=== PATIENT | male | born 1975 ===

== ENCOUNTER 2018-08-02 23:40 | Emergency (ER) | payer OTHER ==
[2018-08-03] MEDS ORDERED: Promethazine/Cod 6.25mg-10mg/5ml Syr UD PO STA (01:06)
[2018-08-03] MEDS ORDERED: Albuterol-Ipratrop 3 mg / 0.5 (3 ml) UD IH STA (01:06)
--- NOTE | 2018-08-03 01:09 | ED PDOC ---
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 Associated chills and subjective fevers at night. Patient taking Mucniex, Theraflu, and cough syrup without improvement. Denies fever, chest pain, shortness of breath, palpitations, leg pain/swelling, recent travel, sick contacts. Past Medical History Reviewed: Historical Data, Nursing Documentation, Vital Signs Vital Signs: Last Vital Signs Temp 98.2 F 08/03/18 00:09 Pulse 78 08/03/18 00:09 Resp 16 08/03/18 00:09 BP 145/87 08/03/18 00:09 Pulse Ox 97 08/03/18 00:09 - Medical History PMH: Bronchitis, Depression - Surgical History Surgical History: No Surg Hx - Family History Family History: States: No Known Family Hx - Living Arrangements Living Arrangements: With Family - Home Medications Home Medications: Ambulatory Orders Medication Instructions Recorded Albuterol HFA [Ventolin HFA 90 2 puff IH A8CLMBC #60 puff 04/15/15 mcg/actuation (8 g)] Azithromycin 250 mg PO DAILY 4 Days tab 04/15/15 Ibuprofen [Motrin Tab] 600 mg PO Q6 #30 tab 03/05/17 Promethazine DM [Phenergan DM 10 d PO DAILY 5 Days #10 dose 03/05/17 Syrup] predniSONE [predniSONE Tab] 20 mg PO DAILY #2 tab 03/05/17 Albuterol HFA [Ventolin HFA 90 1 puff IH Q4 PRN #1 inh 08/03/18 mcg/actuation (8 g)] Fluticasone Nasal [Flonase] 1 actuation NS BID #1 bottle 08/03/18 Methylprednisolone [Medrol Dose 4 mg PO ASDIR #21 mg 08/03/18 Pack (21 tabs)] Promethazine/Codeine 5 ml PO HS PRN #20 ml 08/03/18 [Phenergan/Codeine Oral Syrup] - Allergies Allergies/Adverse Reactions: Allergies Allergy/AdvReac Type Severity Reaction Status Date / Time No Known Allergies Allergy Verified 03/05/17 02:47 Review of Systems ROS Statement: Except As Marked, All Systems Reviewed And Found Negative ENT: Positive for: Nose Congestion Respiratory: Positive for: Cough Physical Exam - Reviewed Nursing Documentation Reviewed: Yes Vital Signs Reviewed: Yes - Physical Exam Appears: Positive for: Well, Non-toxic, No Acute Distress Head Exam: Positive for: ATRAUMATIC, NORMAL INSPECTION, NORMOCEPHALIC Skin: Positive for: Normal Color Eye Exam: Positive for: Normal appearance ENT: Positive for: TM Is/Are (clear), Nasal Congestion. Negative for: Pharyngea l Erythema, Tonsillar Exudate Cardiovascular/Chest: Positive for: Regular Rate, Rhythm Respiratory: Positive for: Normal Breath Sounds Gastrointestinal/Abdominal: Positive for: Normal Exam Back: Positive for: Normal Inspection Extremity: Positive for: Normal ROM Neurological/Psych: Positive for: Awake, Alert, Oriented (x3) - ECG O2 Sat by Pulse Oximetry: 97 - Radiology X-Ray: Viewed By Ok X-Ray Interpretation: No Acute Disease - Progress ED Course And Treament: -cxr -duoneb -promethazine with codeine Patient educated on findings, discharged with rx albuterol HFA, medrol dose david, promethazine with codeine, flonase Advised to follow up PMD within 2-3 days Return precautions given Disposition - Clinical Impression Clinical Impression: Bronchitis - Patient ED Disposition Is Patient to be Admitted: No Counseled Patient/Family Regarding: Studies Performed, Diagnosis, Need For Followup, Rx Given - Disposition Referrals: [facility] [Outside] Disposition: Routine/Home Disposition Time: 03:37 Condition: IMPROVED Prescriptions: Albuterol HFA [Ventolin HFA 90 mcg/actuation (8 g)] 1 puff IH Q4 PRN #1 inh PRN Reason: Wheezing Fluticasone Nasal [Flonase] 1 actuation NS BID #1 bottle Methylprednisolone [Medrol Dose Pack (21 tabs)] 4 mg PO ASDIR #21 mg Promethazine/Codeine [Phenergan/Codeine Oral Syrup] 5 ml PO HS PRN #20 ml PRN Reason: Cough Instructions: Acute Bronchitis Forms: [facility] (Mongolian) Print Language: MALTESE
[2018-08-03] MEDS ORDERED: Promethazine/Cod 6.25mg-10mg/5ml Syr UD ONE (01:13)
[2018-08-03] MEDS ORDERED: Albuterol-Ipratrop 3 mg / 0.5 (3 ml) UD ONE (01:14)
[2018-08-03 03:59] VITALS: BP 135/84; PULSE 84; RESP 18; TEMP 98.4; O2SAT 98
--- NOTE | 2018-08-03 11:00 | RAD ---
Date of service: 08/03/2018 HISTORY: Cough and congestion COMPARISON: 03/05/2017. TECHNIQUE: Chest PA and lateral FINDINGS: LINES AND TUBES: None. LUNG AND PLEURA: The lungs are well inflated and clear. No pleural effusion or pneumothorax. HEART AND MEDIASTINUM: The heart is not enlarged. No aortic atherosclerotic calcifications present. The hilar and mediastinal contours are within normal limits. SKELETAL STRUCTURES: The bony structures are within normal limits for the patient's age. VISUALIZED UPPER ABDOMEN: Normal. OTHER FINDINGS: None. IMPRESSION: No active pulmonary disease.
== END 2018-08-03 03:48 | disposition home or self-care (01) ==
LOC: H.ER 23:40 → MERGE 23:40 → H.ER 08-03 03:48
DX: J40 Bronchitis, not specified as acute or chronic (principal)

== ENCOUNTER 2018-08-11 03:35 | Emergency (ER) | payer OTHER, SELFPAY ==
[2018-08-11 04:02] VITALS: BP 148/94; PULSE 77; RESP 17; O2SAT 98
[2018-08-11] MEDS ORDERED: Albuterol-Ipratrop 3 mg / 0.5 (3 ml) UD IH STA (04:10)
--- NOTE | 2018-08-11 04:14 | ED PDOC ---
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 Patient evaluated on 08/03/18 (under different account [id number]) for same, had normal chest xray, and discharged with inhaler, flonase, promethazine with codeine, and medrol dose david; which patient states he finished and is still having symptoms. Patient reports associated cold sweats. Denies fever, nausea/vomiting, congestion, chest pain, shortness of breath, palpitations, abdominal pain, leg pain/swelling. Past Medical History Reviewed: Historical Data, Nursing Documentation, Vital Signs Vital Signs: Last Vital Signs Temp 98.3 F 08/11/18 03:59 Pulse 77 08/11/18 03:59 Resp 17 08/11/18 03:59 BP 148/94 H 08/11/18 03:59 Pulse Ox 98 08/11/18 03:59 - Medical History PMH: Anxiety, Depression, Hypercholesterolemia - Family History Family History: States: Unknown Family Hx - Immunization History Hx Tetanus Toxoid Vaccination: Yes (2011) Hx Influenza Vaccination: No Hx Pneumococcal Vaccination: No - Home Medications Home Medications: Ambulatory Orders Medication Instructions Recorded Acetaminophen/Codeine Phosph 1 tab PO Q6H PRN #20 tab 03/12/14 [Acetaminophen/Codeine 300 mg-15 mg] Cephalexin [Keflex] 500 mg PO BID #14 cap 03/14/15 Cephalexin [Keflex] 500 mg PO TID #21 tab 07/10/15 Ibuprofen [Motrin] 600 mg PO Q6 PRN #15 tab 07/10/15 Tobramycin 0.3% [Tobrex 0.3% Ophth 1 drop OD Q4 #1 bottle 02/10/17 Soln] Fluticasone Nasal [Flonase] 1 actuation NS BID #1 bottle 04/27/17 Ibuprofen [Motrin Tab] 1 tab PO Q6 PRN #20 tab 12/27/17 Promethazine DM [Phenergan DM 5 ml PO Q6 PRN #1 bottle 04/27/17 Syrup] Cetirizine HCl [Zyrtec] 10 mg PO DAILY #20 capsule 08/11/18 Prednisone 50 mg PO DAILY #4 tablet 08/11/18 Promethazine DM [Phenergan DM 5 ml PO Q6 PRN #1 bottle 08/11/18 Syrup] - Allergies Allergies/Adverse Reactions: Allergies Allergy/AdvReac Type Severity Reaction Status Date / Time No Known Allergies Allergy Verified 04/27/17 18:42 Review of Systems ROS Statement: Except As Marked, All Systems Reviewed And Found Negative Respiratory: Positive for: Cough Physical Exam - Reviewed Nursing Documentation Reviewed: Yes Vital Signs Reviewed: Yes - Physical Exam Appears: Positive for: Well, Non-toxic, No Acute Distress Head Exam: Positive for: ATRAUMATIC, NORMAL INSPECTION, NORMOCEPHALIC Skin: Positive for: Normal Color Eye Exam: Positive for: Normal appearance ENT: Positive for: Normal ENT Inspection Cardiovascular/Chest: Positive for: Regular Rate, Rhythm Respiratory: Positive for: Normal Breath Sounds Gastrointestinal/Abdominal: Positive for: Normal Exam Back: Positive for: Normal Inspection Extremity: Positive for: Normal ROM Neurological/Psych: Positive for: Awake, Alert, Oriented (x3) - Laboratory Results Result Diagrams: 08/11/18 04:30 08/11/18 04:30 - ECG O2 Sat by Pulse Oximetry: 98 - Progress ED Course And Treament: -cbc -cmp -blood culture -IV solumedrol -duoneb Patient states cough improved on re-eval Patient educated on findings, discharged with rx Prednisone, Promethazine-DM, Zyrtec Advised follow up PMD within 2-3 days Return precautions given Disposition - Clinical Impression Clinical Impression: Cough - Patient ED Disposition Is Patient to be Admitted: No Counseled Patient/Family Regarding: Studies Performed, Diagnosis, Need For Followup, Rx Given - Disposition Referrals: [facility] [Outside] Disposition: Routine/Home Disposition Time: 05:14 Condition: IMPROVED Prescriptions: Cetirizine HCl [Zyrtec] 10 mg PO DAILY #20 capsule Prednisone 50 mg PO DAILY #4 tablet Promethazine DM [Phenergan DM Syrup] 5 ml PO Q6 PRN #1 bottle PRN Reason: Cough Instructions: Cough in Adults Print Language: LITHUANIAN
[2018-08-11] MEDS ORDERED: Albuterol-Ipratrop 3 mg / 0.5 (3 ml) UD ONE (04:26)
[2018-08-11 04:48] LABS: BASO # 0.1 K/uL (0.0-0.2); BASO % 0.8 % (0.0-2.0); EOS # 0.3 K/uL (0.0-0.7); EOS % 2.9 % (0.0-4.0); HEMOGLOBIN 16.3 g/dL (12.0-18.0); LYMPH # 3.1 K/uL (1.0-4.3); LYMPH % 29.6 % (20.0-40.0); MEAN CELL VOLUME 85.7 fl (80.0-94.0); MEAN CORPUSCULAR HEMOGLOBIN 30.9 pg (27.0-31.0); MEAN PLATELET VOLUME 7.9 fl (7.2-11.7); MONO # 0.6 K/uL (0.0-0.8); MONO % 5.7 % (0.0-10.0); NEUT # 6.4 K/uL (1.8-7.0); NRBC % 0.5 % (0.0-0.0); RBC 5.29 Mil/uL (4.40-5.90); RED CELL DISTRIBUTION WIDTH 14.1 % (11.5-14.5); WHITE BLOOD COUNT 10.5 K/uL (4.8-10.8)
[2018-08-11 04:57] LABS: ALB/GLOB RATIO 1.3 (1.0-2.1); ALBUMIN 4.4 g/dL (3.5-5.0); BLOOD UREA NITROGEN 16 mg/dl (9-20); CALCIUM 9.1 mg/dL (8.4-10.2); GFR NON-AFRICAN AMERICAN > 60
[2018-08-11 05:15] LABS: ALT/SGPT 60 U/L (21-72); AST/SGOT 51 U/L (17-59)
[2018-08-11 05:36] VITALS: TEMP 98.2
== END 2018-08-11 05:41 | disposition home or self-care (01) ==
LOC: MERGE 03:35 → H.ER 03:35
DX: R05 Cough (principal); Z86.59 Personal history of other mental and behavioral disorders
CPT/HCPCS: 80053; 85025; 87040; 87149; 87205; 96374; 99283; J2930